=== PATIENT | male | born 1930 | race Caucasian/White ===

== ENCOUNTER 2019-12-06 16:01 | Emergency (ER) | payer MEDICARE ==
--- NOTE | 2019-12-06 16:51 | UC ---
General HPI - HPI Summary HPI Summary: 89-year-old male comes in with his with a chief complaint of feeling mentally fuzzy and having some difficulty controlling his feet when he walks half a mile. 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 Reports a stent placed his brain 5 years ago in [place]. 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 At approximately March 2019 patient started exercising where he walks half mile or more. Patient does have some difficulty with memory and so it's unclear when his symptoms that he is here for today started. Patient told somebody today about his symptoms and that person told the patient to call his primary care doctor and the patient call the primary care doctor who told the patient to come here. Patient denies any shortness of breath or chest pain or focal neurologic deficit. When he has not walked a half a mile he does not have any of the above symptoms. He does not take any medications. - History of Current Complaint Chief Complaint: UCGeneralIllness Stated Complaint: FUZZY,DIZZY Time Seen by Provider: 12/06/19 16:04 Pain Intensity: 0 - Allergy/Home Medications Allergies/Adverse Reactions: Allergies Allergy/AdvReac Type Severity Reaction Status Date / Time Penicillins Allergy Unknown Verified 12/06/19 16:19 Reaction Details Home Medications: Home Medications NK [No Home Medications Reported] 12/06/19 [History Confirmed 12/06/19] PMH/Surg Hx/FS Hx/Imm Hx Previously Healthy: Yes Neurological History: CVA - Surgical History Surgical History: Yes Surgery Procedure, Year, and Place: stent x1 in brain. diverticulitis, "small section of bowel removed". prostate - Family History Known Family History: Positive: Non-Contributory - Social History Alcohol Use: None Substance Use Type: None Smoking Status (MU): Never Smoked Tobacco Review of Systems All Other Systems Reviewed And Are Negative: Yes Constitutional: Positive: Other - SEE HPI Skin: Positive: Negative Eyes: Positive: Negative ENT: Positive: Negative Respiratory: Positive: Negative Cardiovascular: Positive: Negative Gastrointestinal: Positive: Negative Genitourinary: Positive: Negative Motor: Positive: Other - SEE HPI Neurovascular: Positive: Negative Musculoskeletal: Positive: Negative Neurological/Mental Status: Positive: Other - SEE HPI Psychological: Positive: Negative Is Patient Immunocompromised?: No Physical Exam Triage Information Reviewed: Yes Appearance: Well-Appearing, No Pain Distress, Well-Nourished Vital Signs: Initial Vital Signs Temp 97.6 F 12/06/19 16:07 Pulse 61 12/06/19 16:07 Resp 20 12/06/19 16:07 BP 151/80 12/06/19 16:07 Pulse Ox 100 12/06/19 16:07 Vital Signs Reviewed: Yes Eye Exam: Normal Eyes: Positive: Conjunctiva Clear - PERRLA EOMI no photophobia. 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 Neurological: Positive: Alert, Other: - Patient does have some difficulties with memory. 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 Exam Date: 12/06/191642 ADM Status: REG ER Order Information: CHEST PA LAT 2 VWS Accession Number: [id number] CPT: 77863 INDICATION: Confusion. COMPARISON: There are no relevant prior studies available for comparison. TECHNIQUE: Dual- energy PA and lateral views of the chest were obtained. FINDINGS: The heart is within normal limits in size. Mediastinal and hilar contours appear within normal limits. The lungs are clear. No pleural effusion is seen. IMPRESSION: NO EVIDENCE FOR ACTIVE CARDIOPULMONARY DISEASE. <Electronically signed by Juan Horton MD in OV> [id number] Dictated By: Juan Horton MD Dictated Date/Time: 12/06/191712 Transcribed Date/Time: 12/06/191712 Copy to: CC:Urbano Juarez MD; Jan Bear MD Imaging - [facility] Imaging - [place] [facility] [address] [facility] [address] ph ([phone]) ph ) [phone]) End of Report Content I discussed the EKG chest x-ray and orthostatic vital signs with the patient and his . Orthostatic vital signs were normal EKG was sinus bradycardia without any ectopy or ischemic changes. Chest x-ray was normal. Patient was asymptomatic here in clinic. Patient reports feelings the symptoms when he walks a half of a mile. With no focal neurologic deficit or complaint of chest pain recommended following up with his primary care doctor and also his neurologist. Also recommended that if he has anymore symptoms he should go directly to the emergency room. Also recommended avoiding any activity that brings these symptoms on. - Diagnoses Provider Diagnosis: Decreased exercise tolerance Discharge ED - Sign-Out/Discharge Documenting (check all that apply): Patient Departure All imaging exams completed and their final reports reviewed: No Studies - Discharge Plan Condition: Stable Disposition: HOME Patient Education Materials: Altered Mental Status (ED), Exercise Safety (ED) Referrals: Urbano Juarez MD [Primary Care Provider] - Additional Instructions: FOLLOW UP WITH YOUR PRIMARY CARE DOCTOR AND YOUR NEUROLOGIST. Do not do any activities that cause your symptoms. GO TO THE EMERGENCY DEPARTMENT IF YOU HAVE ANY OF YOUR SYMPTOMS OR IF WORSE OR ANY QUESTIONS OR CONCERNS. - Billing Disposition and Condition Condition: STABLE Disposition: Home
[2019-12-06 17:26] VITALS: BP 138/70
[2019-12-07 11:37] LABS: ABS Basophils 0.1 10^3/ul (0-0.2); ABS Eosinophils 0.7 10^3/ul (0-0.6); ABS Lymphocytes 1.5 10^3/ul (1.0-4.8); ABS Monocytes 0.5 10^3/ul (0-0.8); ABS Neutrophils 3.4 10^3/ul (1.5-7.7); Eosinophil % 11.1 %; Hematocrit 41 % (42-52); Hemoglobin 14.3 g/dL (14.0-18.0); Lymphocyte % 24.8 %; Mean Corpuscular HGB Conc 35 g/dL (31-36); Mean Corpuscular Hemoglobin 34 pg (27-31); Mean Corpuscular Volume 97 fL (80-94); Mean Platelet Volume 7.6 fL (7.4-10.4); Nucleated Red Blood Cells % 0.1; Platelet Count 180 10^3/uL (150-450); Red Blood Count 4.24 10^6 /uL (4.18-5.48); Red Cell Distribution Width 13 % (10-15); White Blood Count 6.2 10^3/uL (3.5-10.8)
[2019-12-07 13:55] LABS: Albumin 4.8 g/dL (3.2-5.2); Calcium 10.1 mg/dL (8.6-10.3); Potassium 4.7 mmol/L (3.5-5.0); Total Bilirubin 0.7 mg/dL (0.2-1.0)
[2019-12-07 14:01] LABS: Albumin/Globulin Ratio 1.8 (1-3); BUN/Creatinine Ratio 18.4 (8-20); EGFR African American 41.9 (>60); EGFR Non-African American 34.6 (>60); Globulin 2.7 g/dL (2-4); Total Protein 7.5 g/dL (6.4-8.9)
[2019-12-07 14:06] LABS: TSH (Thyroid Stimulating Horm) 5.9 mcIU/mL (0.34-5.60)
== END 2019-12-06 17:48 | disposition home or self-care (01) ==
LOC: UCCORT 16:01
DX: R68.89 Other general symptoms and signs (principal); R42 Dizziness and giddiness; R53.1 Weakness; R41.3 Other amnesia; Z88.0 Allergy status to penicillin; Z86.73 Personal history of transient ischemic attack (TIA), and cerebral infarction without residual deficits
CPT/HCPCS: 36415; 71046; 80053; 84443; 85025; 99202; G0463